=== PATIENT | male | born 1980 | race Caucasian/White ===

== ENCOUNTER 2019-01-25 07:40 | Emergency (ER) | payer MEDICARE ==
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
[2019-01-25] MEDS ORDERED: AMOXICILLIN 500 MG CAP PO ONE (08:05)
[2019-01-25] MEDS ORDERED: HYDR-385 PO (08:11)
[2019-01-25] MEDS ORDERED: AMOX500T10 PO (08:11)
[2019-01-25] MEDS ORDERED: APAP/HYDROCODONE 325/5 TAB PO ONE (08:15)
[2019-01-25 08:24] VITALS: BP 135/117
== END 2019-01-25 08:30 | disposition home or self-care (01) ==
LOC: ER 08:09
DX: K02.9 Dental caries, unspecified (principal)
CPT/HCPCS: 99283; A9270

== ENCOUNTER 2019-01-31 20:18 | Emergency (ER) | payer MEDICARE ==
[~2019-01-31 20:18] MED LIST: AMOX500T10 PO; HYDR-385 PO
--- NOTE | 2019-01-31 20:25 | ER Report ---
History and Physical Time Seen By MD: 20:21 Allergies: Coded Allergies: diazepam (Verified Allergy, Unknown, MENTAL STATUS CHANGES, 01/25/19) divalproex sodium (Verified Allergy, Unknown, NAUSEA/VOMITING, 01/25/19) ziprasidone (Verified Allergy, Unknown, UNKNOWN, 01/25/19) SEIZURES Home Meds Active Scripts Hydrocodone Bit/Acetaminophen (HYDROCODON-ACETAMINOPHEN 5-325) 1 Each Tablet, 1 EACH PO Q4H PRN for PAIN, #15 TAB Prov:LAURORA,PEDRO V DO 01/25/19 Amoxicillin 500 Mg Tab (AMOXICILLIN 500 MG TAB) 500 Mg Tablet, 1 TAB PO Q8H, #21 TAB Prov:LAURORA,PEDRO V DO 01/25/19 Hx Smoking: No Hx Substance Use Disorder: No Hx Alcohol Use: No Depart Departure Condition: Stable Disposition: HOME OR SELF-CARE SHIRLEY COWAN MD Jan 31, 2019 20:25
[2019-02-01] MEDS ORDERED: MULT-1379 PO (10:34)
[2019-02-01] MEDS ORDERED: NIC10R INH (10:36)
[2019-02-01] MEDS ORDERED: QUET100T29 PO (10:37)
== END 2019-01-31 21:35 | disposition left against medical advice (07) ==
LOC: ER 21:20
DX: Z02.9 Encounter for administrative examinations, unspecified (principal)

== ENCOUNTER 2019-01-31 23:14 | Emergency (ER) | payer MEDICARE ==
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
[2019-01-31] MEDS ORDERED: LORazepam 1 MG TAB PO ONE (23:45)
[2019-02-01] MEDS ORDERED: THIAMINE HCL(*) 200 MG/2 ML IN 100 MG, FOLIC ACID(*) 50 MG/10 ML INJ 1 MG, MULTIVITAMIN... IV ONE (00:04)
[2019-02-01] MEDS ORDERED: MAGNESIUM SUL 50% 1GM/2ML VIAL ONE (00:04)
[2019-02-01] MEDS ORDERED: THIAMINE HCL 200 MG/2 ML INJ ONE (00:04)
[2019-02-01] MEDS ORDERED: MULTIVITAMINS 10 ML VIAL IV ONE (00:05)
[2019-02-01] MEDS ORDERED: diphenhydrAMINE 50 MG/ML VIAL IVP ONE (00:20)
[2019-02-01] MEDS ORDERED: QUEtiapine FUM 100 MG TAB PO ONE (00:20)
[2019-02-01] MEDS ORDERED: LORazepam 2 MG/ML VIAL IVP ONE (00:20)
[2019-02-01 00:32] LABS: PLATELET COUNT, AUTOMATED 247 K/uL (150-450)
[2019-02-01] MEDS ORDERED: POTASSIUM CHL 20 MEQ TABCR PO ONE (00:45)
[2019-02-01 01:00] VITALS: BP 149/88
[2019-02-01] MEDS ORDERED: POTASSIUM CHL 20 MEQ TABCR PO SCH (09:00)
[2019-02-01] MEDS ORDERED: MULT-1379 PO (10:34)
[2019-02-01] MEDS ORDERED: NIC10R INH (10:36)
[2019-02-01] MEDS ORDERED: QUET100T29 PO (10:37)
== END 2019-02-01 01:26 ==
LOC: ER 23:32
DX: F43.10 Post-traumatic stress disorder, unspecified (principal); F31.9 Bipolar disorder, unspecified; F10.229 Alcohol dependence with intoxication, unspecified
CPT/HCPCS: 80305; 81001; 83735; 84443; 85025; 96374; 96375; 99284; A9270; G0480; J1200; J2060; J3411; J3475; J7030; 80320; 80329; 82040; 82247; 82310; 82374; 82435; 82565; 82947; 84075; 84132; 84155; 84295; 84450; 84460; 84520

== ENCOUNTER 2019-02-01 01:25 | Inpatient (IN) | payer MEDICARE ==
[~2019-02-01] VITALS: Ht 172.7 cm; Wt 86.2 kg
[2019-02-01] MEDS ORDERED: MAG HYD/AL HYD/SIMETH 30ML UDC PO PRN (01:30)
[2019-02-01] MEDS ORDERED: NICOTINE INH SYSTEM 10 MG/INH INH PRN (01:30)
[2019-02-01 01:50] VITALS: BP 133/102
[2019-02-01] MEDS: LORazepam 1 MG TAB PO PRN ×2 (02:24→02:25)
[2019-02-01] MEDS ORDERED: LORazepam 1 MG TAB PO PRN (02:25)
[2019-02-01 08:00] VITALS: BP 110/68
[2019-02-01] MEDS ORDERED: THIAMINE HCL 100 MG TAB PO SCH (09:00)
[2019-02-01] MEDS ORDERED: FOLIC ACID 1 MG TAB PO SCH (09:00)
[2019-02-01] MEDS ORDERED: MULTIVITAMINS TAB PO SCH (09:00)
[2019-02-01 09:10] VITALS: BP 122/78
[2019-02-01] MEDS ORDERED: MULT-1379 PO (10:34)
[2019-02-01] MEDS ORDERED: NIC10R INH (10:36)
[2019-02-01] MEDS ORDERED: QUET100T29 PO (10:37)
--- NOTE | 2019-02-01 21:59 | SCHAAF H&P ---
THIS IS A HISTORY AND PHYSICAL WELL A DISCHARGE SUMMARY FOR PATIENT WHO WAS ADMITTED AND DISCHARGED IN A 24-HOUR PERIOD. DATE OF ADMISSION: February 01, 2019 DATE OF DISCHARGE: February 01, 2019 ATTENDING PHYSICIAN Willard Perez MD Patient was seen at approximately 1000 hours on 01 February 2019 for note concerning this dictation. FINAL DIAGNOSES 1. Bipolar disorder, unspecified. 2. Alcohol use disorder, moderate. 3. Cannabis use disorder. 4. Rule out malingering. 5. Social stressors. REASON FOR ADMISSION This is a 38-year-old male who initially presented on the evening of January 31, 2019, to the Emergency Room. Patient then noted to be leaving the Emergency Room and chastising them for "not helping a ." Patient making idle threats. Police were summoned, who brought patient back to the Emergency Room where patient was calm and cooperative. Patient admitted for making vague suicidal threats under some minimal amount of alcohol intoxication. Patient again was admitted without incident on the unit. Patient reported that he was under stress, and he was out of money. He had bought a van in [place] and moved here hoping to get a job he had not obtained yet. Patient also noted to be traveling with a friend, also in the Emergency Room and down on their luck as well. When asked about psychiatric symptoms, patient reported that he has long been diagnosed with a bipolar-like mood condition and had trouble sleeping. When asked about suicide, patient reported, "I was yesterday," and stating now his mood had much improved after getting good rest on the unit with the addition of some Ativan and Seroquel. The patient denied any other symptoms, but when asked about PTSD symptoms, patient disclosed that he was [place]in [place]," but he could not disclose any further information and that he had a "rough childhood." Patient notably working very cooperatively with this provider and other treatment team staff to ensure a discharge with potential help from [facility]. Patient denying any other further symptoms. MENTAL HEALTH HISTORY Patient reports two times being in an inpatient unit, referring a few years ago. Patient reports he is not now getting any outpatient counseling, and patient reports a suicide attempt once 10 years ago where he overdosed. FAMILY PSYCHIATRIC HISTORY Patient reports his mother used drugs heavily, mostly IV. There are no suicides in the family, and no other family history is known of genetic illness or psychiatric illness. PAST MEDICAL HISTORY Patient reported having poor dentition. He denies having any alcohol withdrawal that is clinically relevant ever. ALLERGIES Patient notably having allergies to ZIPRASIDONE, DEPAKOTE, and DIAZEPAM. SOCIAL HISTORY Patient born in [place], [place], raised mostly in [place]. His parents were not together at the time of his , and his mother when he was 16 years old from drug use-related illnesses. Patient has one half sister. He states he did graduate from high school and has an associates degree in communication. Patient is not working, on disability. When asked what for, he reports it is part mental and part physical. Patient reported again a "rough childhood." He was times one. He is . He has one child, age 1414 years old, who lives with her mother out of state. LEGAL HISTORY Patient denies any legal history. SUBSTANCE ABUSE HISTORY His substance use history is significant for long-standing problems with alcohol. HISTORY Patient denies any service, but gives vague references to serving in the [employer] while working for the [employer]. Patient does not have access to [employer] benefits. PHYSICAL EXAMINATION Please see emergency room note. GENERAL: After being brought back to the Emergency Room with police escort, patient was notably calm and cooperative. VITAL SIGNS: Temperature 97.8, pulse 94, respiratory rate 16, blood pressure 134/84, and pulse oximetry 96% on room air. LABORATORY DATA CBC showed MCH mildly elevated at 34.0; otherwise unremarkable. CMP notable for potassium slightly low at 3.0 with an AST elevated slightly at 46. TSH 3.07. Urinalysis unremarkable. Toxicology screen positive for cannabis, negative for other substances of abuse, with a serum alcohol level of 56 upon admission. MENTAL STATUS EXAMINATION AT TIME OF DISCHARGE GENERAL APPEARANCE, BEHAVIOR, AND ATTITUDE: This is an overall cooperative 38-year-old male, having slept well the night before. Patient interacting well with this provider and other treatment team staff. Patient indicating an understanding of help that is available through [facility]. SPEECH: Within normal limits. Regular rate, rhythm, volume, and tone. MOOD: Described as good. AFFECT: Full and mood congruent. THOUGHT PROCESSES: Logical, goal directed. No loose associations or flight of ideas. THOUGHT CONTENT: Free of any auditory or visual hallucinations, ideas of reference, thought broadcastings, delusions, obsessions, compulsions. Patient adamantly denying suicidal or homicidal ideation. SENSORIUM: Clear. COGNITION: Alert and oriented to person, place, time, and situation. MEMORY: Immediate, recent, and remote estimated intact. INTELLIGENCE: Average to slightly below based on interview. INSIGHT AND JUDGMENT: Considered grossly intact and appropriate for outpatient care in the absence of drug or alcohol use. RESULTS OF TESTING Imaging: None. Laboratory Data: See above. CONSULTATIONS None. TREATMENT Patient received medications, participated in individual and group therapy. HOSPITAL COURSE Patient responded quickly to getting a good night's rest with the help of Ativan and Seroquel. Patient much better the following day. No clinical signs of alcohol withdrawal existed, and patient stated he has never had any delirium tremens, seizures, or clinically relevant alcohol withdrawal. Patient was referred to [facility] for further financial developer, and patient did participate in therapy. CONDITION OF PATIENT ON DISCHARGE Stable. Considered minimal risk to himself of others, and appropriate for outpatient care. DISPOSITION Patient discharged to his motor vehicle. He would drive to [facility] for further help financially. Patient agreed to follow up at [facility] and had appointments there as well as AA, and abstain from alcohol and cannabis and any other illicit substances. Crisis line was given should symptoms return. Script was written for Seroquel 50 mg p.o. at bedtime. Patient agreed to take as prescribed. DIAGNOSES 1. Bipolar disorder, unspecified. 2. Alcohol use disorder, moderate. 3. Cannabis use disorder. 4. Social stressors. Risks, benefits, and alternatives of above discharge plan were discussed. Informed consent was given to proceed with above discharge plan by this competent patient. THIS IS A HISTORY AND PHYSICAL WELL A DISCHARGE SUMMARY FOR PATIENT WHO WAS ADMITTED AND DISCHARGED IN A 24-HOUR PERIOD. [facility] MEDICAL CENTERJarred
== END 2019-02-01 10:55 | disposition home or self-care (01) | DRG 885 ==
LOC: BHS 01:25
PROVIDERS: ADMIT Psychiatry & Neurology Psychiatry; ATTEND Psychiatry & Neurology Psychiatry
DX: F31.9 Bipolar disorder, unspecified (principal); R45.851 Suicidal ideations; F10.929 Alcohol use, unspecified with intoxication, unspecified; F12.90 Cannabis use, unspecified, uncomplicated

== ENCOUNTER 2019-02-05 08:12 | Emergency (ER) | payer MEDICARE ==
[~2019-02-05 08:12] MED LIST changes: +MULT-1379 PO; +NIC10R INH; +QUET100T29 PO
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
[2019-02-05 08:18] VITALS: BP 137/105
--- NOTE | 2019-02-05 09:47 | RADIOLOGY IMAGING REPORT ---
FACILITY: [facility] PATIENT NAME: Dougie Gorman : 1980 MR: [id number] V: [id number] EXAM DATE: ORDERING PHYSICIAN: JUAN DE JESUS TECHNOLOGIST: Location: [facility] Patient: Dougie Gorman : 1980 Visit/Account:[id number] Date of Sevice: 02/05/2019 Exam type: ANKLE 3 VIEW MIN RIGHT History: PAIN TO MEDIAL ASPECT OF THE RIGHT ANKLE AFTER HIKING Comparison: None. Findings: There is a large right calcaneal spur. Small osteophyte is present at the insertion of the Achilles tendon. Calcific densities project over the anterior aspect talotibial joint on the lateral view whi ch may represent a peritendinous calcifications. No definite acute-appearing fracture is seen IMPRESSION: 1. Degenerative changes of the right ankle as described No definite acute fracture seen. If symptoms persist cross-sectional imaging may be helpful Report Dictated By: Deepa Martinez MD at 02/05/2019 9:35 AM Report E-Signed By: Deepa Martinez MD at 02/05/2019 9:38 AM WSN:[id number]
== END 2019-02-05 10:00 | disposition home or self-care (01) ==
LOC: ER 08:20
DX: S93.401A Sprain of unspecified ligament of right ankle, initial encounter (principal); W23.1XXA Caught, crushed, jammed, or pinched between stationary objects, initial encounter; Y93.01 Activity, walking, marching and hiking; F17.210 Nicotine dependence, cigarettes, uncomplicated
CPT/HCPCS: 99283